=== PATIENT | male | born 1970 | race Caucasian/White ===

== ENCOUNTER 2023-03-24 23:38 | Emergency (ER) | payer OTHER ==
[2023-03-25 00:06] VITALS: BP 118/85; PULSE 125; RESP 22; TEMP 98.1; BMI 25.8
[2023-03-25] MEDS ORDERED: FOLIC ACID INJECTION - 1 MG, THIAMINE HCL 100 MG, MULTIVIT INJECTION ADULT 10 ML in SOD... IVPB ONE ×2 (00:46→02:30)
[2023-03-25] MEDS ORDERED: diazePAM CARPU-JECT 10 MG/2 ML DISP.SYRIN IVPUSH ONE (00:51)
[2023-03-25] MEDS ORDERED: SODIUM CHLORIDE 0.9% 500 ML INFUS.BAG IV ONE ×2 (01:17→01:50)
[2023-03-25] MEDS ORDERED: ONDANSETRON 4 MG/2 ML VIAL IVPUSH ONE ×2 (01:17→03:58)
[2023-03-25 01:25] LABS: HEMATOCRIT 45.8 % (35.4-49); HEMOGLOBIN 15.9 GM/dL (11.7-16.9); MCH 28.1 pg (25.7-33.7); MCHC 34.8 g/dl (32.0-35.9); MEAN PLT VOLUME 7.5 fl (7.5-11.1); PLATELET COUNT 258 10^3/uL (134-434); RBC 5.66 M/mm3 (4.00-5.60); RDW 14.1 % (11.9-15.9); WHITE BLOOD COUNT 20.2 K/mm3 (4.0-10.0)
[2023-03-25] MEDS ORDERED: FAMOTIDINE 20 MG/50 ML IVPB 20 MG/50 ML MG IVPB ONE ×2 (01:32→01:37)
[2023-03-25] MEDS ORDERED: ACETAMINOPHEN 1000 MG/100 ML BAG IVPB ONE (01:33)
[2023-03-25] MEDS ORDERED: ONDANSETRON 4 MG/2 ML VIAL ONE ×2 (01:36→04:06)
[2023-03-25] MEDS ORDERED: diazePAM CARPU-JECT 10 MG/2 ML DISP.SYRIN ONE (01:36)
[2023-03-25 01:37] LABS: METHADONE, UR NEGATIVE (NEGATIVE); URINE AMPHETAMINES NEGATIVE (NEGATIVE)
[2023-03-25] MEDS ORDERED: ACETAMINOPHEN INJECTION 100 ML IVPB ONE (01:37)
[2023-03-25 01:38] LABS: OPIATES, URI NEGATIVE (NEGATIVE); PHENCYCLIDINE,URINE NEGATIVE (NEGATIVE); URINE BARBITURATES NEGATIVE (NEGATIVE); URINE BENZODIAZEPINES NEGATIVE (NEGATIVE)
[2023-03-25 01:39] LABS: COCAINE, UR NEGATIVE (NEGATIVE); EPI CELLS 3 /uL (0-25.1); HYALINE CASTS 0 /uL (0-3.1); PH,URINE 5.5 (5.0-8.0); URINE APPEARANCE CLEAR; URINE BACTERIA 20 /uL (0-1359); URINE BILIRUBIN NEGATIVE (NEGATIVE); URINE COLOR YELLOW; URINE GLUCOSE (UA) NEGATIVE (NEGATIVE); URINE KETONE 2+ (NEGATIVE); URINE LEUK ESTERASE NEGATIVE (NEGATIVE); URINE NITRITE NEGATIVE (NEGATIVE); URINE PROTEIN 1+ (NEGATIVE); URINE RBC 13 /uL (0-23.9); URINE UROBILINOGEN 0.2 mg/dL (0.2-1.0); URINE WBC 11 /uL (0-25.8)
[2023-03-25 01:53] LABS: POTASSIUM 3.7 mmol/L (3.5-5.1)
[2023-03-25 01:55] LABS: CALCIUM 8.6 mg/dL (8.5-10.1)
[2023-03-25 01:56] LABS: ALBUMIN 4.2 g/dl (3.4-5.0); MAGNESIUM 1.9 mg/dL (1.8-2.4)
[2023-03-25 01:59] LABS: CREATININE 0.8 mg/dL (0.55-1.3)
== END 2023-03-25 05:44 | disposition left against medical advice (07) ==
LOC: JER 23:38
PROC: 3E033GC Introduction of Other Therapeutic Substance into Peripheral Vein, Percutaneous Approach (ICD-10-PCS; principal; 2023-03-25)
PROC: 3E033GC Introduction of Other Therapeutic Substance into Peripheral Vein, Percutaneous Approach (ICD-10-PCS; 2023-03-25)
PROC: 3E033GC Introduction of Other Therapeutic Substance into Peripheral Vein, Percutaneous Approach (ICD-10-PCS; 2023-03-25)
PROC: 3E033GC Introduction of Other Therapeutic Substance into Peripheral Vein, Percutaneous Approach (ICD-10-PCS; 2023-03-25)
PROC: 3E033GC Introduction of Other Therapeutic Substance into Peripheral Vein, Percutaneous Approach (ICD-10-PCS; 2023-03-25)
PROC: 3E033GC Introduction of Other Therapeutic Substance into Peripheral Vein, Percutaneous Approach (ICD-10-PCS; 2023-03-25)
PROC: 3E033GC Introduction of Other Therapeutic Substance into Peripheral Vein, Percutaneous Approach (ICD-10-PCS; 2023-03-25)
PROC: 3E033GC Introduction of Other Therapeutic Substance into Peripheral Vein, Percutaneous Approach (ICD-10-PCS; 2023-03-25)
PROC: 3E033GC Introduction of Other Therapeutic Substance into Peripheral Vein, Percutaneous Approach (ICD-10-PCS; 2023-03-25)
PROC: 3E033GC Introduction of Other Therapeutic Substance into Peripheral Vein, Percutaneous Approach (ICD-10-PCS; 2023-03-25)
PROC: 3E033NZ Introduction of Analgesics, Hypnotics, Sedatives into Peripheral Vein, Percutaneous Approach (ICD-10-PCS; 2023-03-25)
PROC: 3E033GC Introduction of Other Therapeutic Substance into Peripheral Vein, Percutaneous Approach (ICD-10-PCS; 2023-03-25)
PROC: 3E033GC Introduction of Other Therapeutic Substance into Peripheral Vein, Percutaneous Approach (ICD-10-PCS; 2023-03-25)
DX: R11.2 Nausea with vomiting, unspecified (principal); R10.84 Generalized abdominal pain; K59.00 Constipation, unspecified; R00.0 Tachycardia, unspecified; F10.239 Alcohol dependence with withdrawal, unspecified
CPT/HCPCS: 36415; 70450-TC; 74177-TC; 80053; 80307; 81003; 82607; 82746; 83690; 83735; 85025; 87086; 93005; 93010; 99285-25; Q9967

== ENCOUNTER 2023-11-25 15:25 | Emergency (ER) | payer OTHER ==
[2023-11-25 15:56] VITALS: BP 121/81; PULSE 108; RESP 18; TEMP 98.8; BMI 27.3
[2023-11-25 17:53] LABS: VENOUS BASE EXCESS -1.1 mmol/L (-2-2); VENOUS O2 SATURATION 88.5 % (70-80); VENOUS PCO2 40.6 mmHg (38-52); VENOUS PH 7.386 (7.310-7.410)
[2023-11-25 18:00] LABS: BASO % 0.5 % (0-2.0); EOS % 0.9 % (0-4.5); HEMATOCRIT 42.8 % (35.4-49); HEMOGLOBIN 14.9 GM/dL (11.7-16.9); LYMPH % 34.4 % (8-40); MCH 28.4 pg (25.7-33.7); MCHC 34.9 g/dl (32.0-35.9); MEAN CELL VOLUME 81.4 fl (80-96); MEAN PLT VOLUME 7.4 fl (7.5-11.1); MONO % 7.5 % (3.8-10.2); NEUT % 56.7 % (42.8-82.8); PLATELET COUNT 203 10^3/uL (134-434); RBC 5.25 M/mm3 (4.00-5.60); RDW 14.6 % (11.9-15.9); WHITE BLOOD COUNT 8.9 K/mm3 (4.0-10.0)
[2023-11-25] MEDS ORDERED: ONDANSETRON 4 MG/2 ML VIAL ONE (18:02)
[2023-11-25] MEDS: ONDANSETRON 4 MG/2 ML VIAL IVPB ONE (18:10)
[2023-11-25] MEDS: SODIUM CHLORIDE 0.9% 500 ML INFUS.BAG IV ONE (18:10)
[2023-11-25 18:31] LABS: POTASSIUM 3.9 mmol/L (3.5-5.1)
[2023-11-25 18:33] LABS: CALCIUM 8.8 mg/dL (8.5-10.1)
[2023-11-25 18:34] LABS: ALBUMIN 3.9 g/dl (3.4-5.0); BLOOD UREA NITROGEN 4.1 mg/dL (7-18)
[2023-11-25 18:37] LABS: CREATININE 0.8 mg/dL (0.55-1.3)
[2023-11-25 18:38] LABS: BILIRUBIN,TOTAL 0.4 mg/dL (0.2-1); TOT PROT 8.4 g/dl (6.4-8.2)
[2023-11-25] MEDS ORDERED: METOCLOPRAMIDE HCL INJECTION 10 MG/2 ML VIAL ONE (19:51)
[2023-11-25] MEDS: METOCLOPRAMIDE HCL INJECTION 10 MG/2 ML VIAL IVPB ONE (19:53)
[2023-11-25] MEDS: METOCLOPRAMIDE HCL 10 MG TABLET (FP) PO ONE (19:53)
== END 2023-11-25 21:14 | disposition left against medical advice (07) ==
LOC: JER 15:25
PROC: 3E033GC Introduction of Other Therapeutic Substance into Peripheral Vein, Percutaneous Approach (ICD-10-PCS; principal; 2023-11-25)
PROC: 3E033GC Introduction of Other Therapeutic Substance into Peripheral Vein, Percutaneous Approach (ICD-10-PCS; 2023-11-25)
DX: R53.1 Weakness (principal); R10.11 Right upper quadrant pain; R10.13 Epigastric pain; R10.32 Left lower quadrant pain; R11.2 Nausea with vomiting, unspecified; R42 Dizziness and giddiness; R47.81 Slurred speech; R63.0 Anorexia; F10.929 Alcohol use, unspecified with intoxication, unspecified; Y90.8 Blood alcohol level of 240 mg/100 ml or more
CPT/HCPCS: 36415; 76705-TC; 80053; 80307; 82803; 82962; 83690; 85025; 93005; 93010; 99285-25